=== PATIENT | female | born 1985 | race Caucasian/White ===

== ENCOUNTER 2019-08-02 02:52 | Day surgery (SDC) | payer OTHER ==
[2019-08-02 03:23] VITALS: BMI 31.3
[2019-08-02] MEDS ORDERED: Promethazine HCl 25 MG/ML VIAL IM PRN (04:59)
[2019-08-02] MEDS ORDERED: hydrALAZINE 20 MG/ML VIAL SLOW IVP PRN (04:59)
[2019-08-02] MEDS ORDERED: Ondansetron PF 4 MG/2 ML Vial IVP PRN (04:59)
[2019-08-02] MEDS ORDERED: CEFAZOLIN 2 GM in Premix Bag 1 BAG IVPB SCH (05:00)
[2019-08-02] MEDS ORDERED: Lactated Ringer's 1,000 ML IV SCH ×2 (05:00)
[2019-08-02] MEDS ORDERED: Bicitra 30 ML UDCUP PO SCH (05:00)
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
[2019-08-02 07:06] LABS: Hemoglobin 12.7 g/dL (12.0-16.0); Mean Corpuscular HGB CONC 34.5 g/dL (32.0-36.0); Mean Corpuscular Hemoglobin 31.1 pg (27.0-31.0); Mean Corpuscular Volume 90.2 fL (78.0-98.0); Mean Platelet Volume 8.5 fL (7.4-10.4); Platelet Count 296 thou/uL (130-400); RBC Distribution Width 12.2 % (11.5-14.5); Red Blood Cell (RBC) Count 4.09 mill/uL (4.20-5.40); White Blood Cell (WBC) Count 13.5 thou/uL (4.8-10.8)
--- NOTE | 2019-08-02 07:34 | PRG ---
DATE OF SERVICE: 08/02/2019 SUBJECTIVE: The patient is a 34-year-old female with an intrauterine at 36 weeks and 5 days, here with rupture of membranes. The patient has her prior x1 and desires bilateral tubal ligation. She is from [place], where her Dr. Jensen has been caring for her. The patient reports that she has been counseled strongly to deliver in [place] by Dr. Jensen. However, documentation that we have been able to obtain says that transfer would not be necessary. We have attempted to contact Dr. Jensen without success and are waiting a call back from the on-call physician, was also attempted to contact Dr. Rowe, the [facility] Physician on duty at her last admission without success. The patient continues to be stable. There is no evidence of active labor at this time. Most recent, the patient reports she is feeling contractions. Has no other complaints. OBJECTIVE: VITAL SIGNS: Blood pressure is 138/75, heart rate of 83, and saturating 99% on room air. PELVIS: Cervical exam this morning is unchanged from last night at 1, 50, and - 3 station. Fetus shows baseline in the 120s with moderate long-term variability. Positive 15 x 15 accelerations. Contractions are becoming more regular and about every 2 to 3 minutes. Again, mild in nature. ASSESSMENT AND PLAN: The patient is a 34-year-old female with history of a carotid artery dissection, had been on Lovenox until her most recent hospitalization last week, where Neurology had recommended transfer over to [facility]. The patient is concerned that she needs to be delivered in [place] as that is how she has been counseled by the Maternal Medicine Physician and her primary OB, however, their documentation from this last hospitalization and visit do not indicate this. We are awaiting to contact her primary OB later this morning to confirm the plan. She desires a tubal ligation and as we do not perform those here, I would be transferring the patient either to [place] or to [place]. addendum. I spoke to Dr Jensen, her primary OB, has contacted me. She has referred the pt earlier in the week to [facility] at the [facility]. Concerns stem from neurovascular interventional radiologies concerns should her partial left carotid artery dissection extend during surgery they do not feel they have the capability of caring for her. [facility] accepted care on Sun. Will be transferring pt to [facility]. PT desires BTL. Dr Jensen has the signed and dated consent form and will be faxing it to us to include in the transfer paperwork Job ID: [id number] MTDD
[2019-08-02 07:40] LABS: Syphilis Antibody Nonreactive (Nonreactive); Syphilis Antibody Index 0.03 S/CO (<1.00 Non-Reactive)
[2019-08-02 07:41] LABS: HBSAg Index 0.11 S/CO (0-0.99); Hep B Surf Ag Non-Reactive S/CO (NonReactive)
[2019-08-02] MEDS ORDERED: Magnesium Sulfate 20 gm/500 ml 20 GM/500 ML BAG ONE (09:57)
[2019-08-02] MEDS ORDERED: Calcium Gluc 4.6 MEQ/10 ML (100 MG/ML) SLOW IVP PRN (10:00)
[2019-08-02] MEDS ORDERED: Magnesium Sulfate 20 GM/WATER 500 ML BAG IVPB SCH (10:00)
[2019-08-02] MEDS ORDERED: Magnesium Sulfate 20 gm/500 ml 20 GM/500 ML BAG IVPB SCH (10:00)
--- NOTE | 2019-08-02 10:11 | PDOC.LDPN ---
Labor & Delivery Progress Note - Subjective Subjective: comfortable - Objective Vital signs reviewed and normal: yes General: NAD, resting Uterine fundus: non tender SVE: 9:45 Dilation: Fingertip Effacement: 50% Station: -3 FHT: category 1, variability present [place] contractions every: 2-3 minutes Plan: other (transfer) -: 34 yo @ 36.5 presents with SROM and ctx At this time we spoke with Dr. Patiño at [facility] who has accepted the patient for transfer. 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 veterbral artery occlusion. These images and records were reviewed. Records obtained from pts outside OB. Pt sees a doctor in [place] and was seeing specialists there. Pt has been maintained w/ AC w/ lovenox during pregnany which they recently stopped. Pt is prior and planned to have repeat w/ tubal. Pt had also seen Neuro IR who planned on dealing with dissection and occlusions above in outpt setting post . Pt is also on metoprolol to maintain BP as she has HTN. At this time pt is going to be transferred due to needing higher level care due to her PPROM and requiring surgical procedure with the above problems above. Addendum - Attending - Attending Attestation Date/Time: 08/02/19 3440 I personally evaluated the patient and discussed the management with Dr. Perales. 36 week IUP SROM with previous C/S requesating BTL and h/o carotid disection. Spoke with Dr. Lentz in [place]; could not accept. Dr. Hunt attempted transfer to [facility] but [facility] would not accept. Spoke with Dr. Patiño at [facility] who has accepted this pt. for transfer. SVE remains unchanged at /50/vtx high. UC mild q 5 mins. Will start Mg and move to transfer. D/w pt. in detail. I agree with the History, Examination, Assessment and Plan documented above.
== END 2019-08-02 11:35 | disposition short-term general hospital (02) ==
LOC: L&D/OP 02:52
PROVIDERS: ATTEND Family Medicine
DX: O42.913 Preterm premature rupture of membranes, unspecified as to length of time between rupture and onset of labor, third trimester (principal); O47.03 False labor before 37 completed weeks of gestation, third trimester; O10.913 Unspecified pre-existing hypertension complicating pregnancy, third trimester; O99.343 Other mental disorders complicating pregnancy, third trimester; F41.9 Anxiety disorder, unspecified; F39 Unspecified mood [affective] disorder; O34.219 Maternal care for unspecified type scar from previous cesarean delivery; Z3A.36 36 weeks gestation of pregnancy; Z88.0 Allergy status to penicillin; Z79.82 Long term (current) use of aspirin; Z79.899 Other long term (current) drug therapy
CPT/HCPCS: 36415; 85027; 86780; 86850; 86870; 86900; 86901; 87340; J3475